=== PATIENT | female | born 1975 | race Caucasian/White ===

== ENCOUNTER 2017-12-25 22:15 | Emergency (ER) | payer SELFPAY ==
[~2017-12-25] VITALS: Ht 170.2 cm; Wt 56.2 kg
[2017-12-25] MEDS ORDERED: LACT10SO PO (22:36)
--- NOTE | 2017-12-25 23:48 | NUR ---
Patient discharged to home in stable conditon. Written and verbal after care instructions given. Patient verbalizes understanding of instructions.
== END 2017-12-25 23:49 | disposition home or self-care (01) ==
LOC: ER 22:16
DX: K59.09 Other constipation (principal); F11.10 Opioid abuse, uncomplicated; Z79.899 Other long term (current) drug therapy
CPT/HCPCS: 99283; A4663

== ENCOUNTER 2020-08-24 01:33 | Emergency (ER) | payer OTHER ==
[~2020-08-24] VITALS: Ht 167.6 cm; Wt 59.0 kg
[~2020-08-24 01:33] MED LIST: LACT10SO PO
--- NOTE | 2020-08-24 01:47 | NUR ---
Dr. Colin at bedside for MSE.
--- NOTE | 2020-08-24 02:11 | NUR ---
Ring on left ring finger removed via ring cutter, skin is intact, patient tolerated procedure well. Dr. Colin at bedside.
--- NOTE | 2020-08-24 02:40 | NUR ---
Neut and lidocaine 2% removed from pyxis per Dr. Colin, Neut and lidocaine given by Dr. Colin.
[2020-08-24] MEDS ORDERED: SODIUM BICARBONATE 4.2 % (NEUT) 5 ML VIAL ONE (02:42)
[2020-08-24] MEDS ORDERED: LIDOCAINE HCL 2% 20 ML VIAL ONE (02:42)
--- NOTE | 2020-08-24 03:05 | NUR ---
Prakash gerber in ED - 08/24/20 at 0310 by [id number] Noelle shah applied by Dr. Colin.
--- NOTE | 2020-08-24 03:05 | NUR ---
Finger splint applied by Dr. Colin to left ring finger.
--- NOTE | 2020-08-24 03:27 | NUR ---
Patient discharged to home in stable condition. Written and verbal after care instructions given. Patient verbalizes understanding of instructions. Stressed follow up or return to ER for worsening s/s.
[2020-08-24 03:28] VITALS: BP 128/74
[2020-08-24] MEDS ORDERED: LIDOCAINE HCL 2% 20 ML VIAL TP ONE (03:30)
[2020-08-24] MEDS ORDERED: SODIUM BICARBONATE 4.2 % (NEUT) 5 ML VIAL TP ONE (03:30)
== END 2020-08-24 03:28 | disposition home or self-care (01) ==
LOC: ER 01:40
DX: S63.295A Dislocation of distal interphalangeal joint of left ring finger, initial encounter (principal); W18.39XA Other fall on same level, initial encounter; Y93.89 Activity, other specified; Y92.89 Other specified places as the place of occurrence of the external cause
CPT/HCPCS: 26770; 73140; 99284; J3490 ×2; A4663